=== PATIENT | female | born 2000 | race African-American/Black ===

== ENCOUNTER 2023-12-19 15:14 | Inpatient (IN) | payer MEDICAID ==
[~2023-12-19] VITALS: Ht 165.1 cm; Wt 89.9 kg
[2023-12-19 15:22] VITALS: O2SAT 100
[2023-12-19] MEDS ORDERED: KETOROLAC 30MG/ML VIAL IV STA (15:22)
[2023-12-19] MEDS: MORPHINE SULFATE 4 MG/ML INJ (FOR IV/IM USE) IV ONE (16:16)
[2023-12-19 16:36] LABS: BASOPHILS % 0.6 % (0.0-2.0); DIFFERENTIAL COMMENT 0; EOSINOPHILS % 3.9 % (0.0-5.0); HEMATOCRIT. 37.3 % (36.0-48.0); HEMOGLOBIN. 12.1 g/dL (12.0-16.0); LYMPHOCYTES % 27.2 % (20.0-50.0); MEAN CORPUSCULAR HEMOGLOBIN 24.7 pg (28.0-32.0); MEAN CORPUSCULAR HGB CONC 32.5 g/dL (31.0-37.0); MEAN CORPUSCULAR VOLUME 75.8 fL (81.0-99.0); MEAN PLATELET VOLUME 8.8 fl (7.4-10.4); MONOCYTES % 6.9 % (2.0-8.0); NEUTROPHILS % 61.4 % (40.0-76.0); PLATELET 481 x1000/uL (130-400); RED BLOOD CELL COUNT 4.92 mill/uL (4.2-5.4); RED CELL DISTRIBUTION WIDTH 15.9 % (11.6-14.6); WHITE BLOOD COUNT 7.7 x1000/uL (4.5-11.0)
[2023-12-19] MEDS: LORAZEPAM 2MG/ML INJ IM ONE ×2 (16:36→18:30)
[2023-12-19] MEDS: DIPHENHYDRAMINE 50MG/ML VIAL IM ONE (16:36)
[2023-12-19] MEDS: HALOPERIDOL LACTATE 5MG/ML VIAL IM ONE (16:36)
[2023-12-19 16:38] LABS: CHLORIDE 107 mEq/L (98-107); POTASSIUM 3.6 mEq/L (3.5-5.1); SODIUM 139 mEq/L (136-145)
[2023-12-19 16:39] LABS: CARBON DIOXIDE 26 mEq/L (21-32)
[2023-12-19 16:40] LABS: CALCIUM 9.4 mg/dL (8.7-10.4)
[2023-12-19 16:44] LABS: CREATININE 0.9 mg/dL (0.6-1.0); GLUCOSE 90 mg/dL (70-105); UREA NITROGEN BLOOD 7 mg/dL (9-23)
[2023-12-19] MEDS: SODIUM CHLORIDE 0.9% 1000ML BAG (SEPSIS BOLUS) IV ONE (16:45)
[2023-12-19 17:11] LABS: HCG SCREEN NEGATIVE
[2023-12-19] MEDS ORDERED: ONDANSETRON HCL 4MG/2ML INJ IV PRN (17:15)
[2023-12-19] MEDS ORDERED: ACETAMINOPHEN 325MG TABLET PO PRN ×2 (17:15)
[2023-12-19] MEDS ORDERED: IPRATROPIUM/ALBUTEROL 0.5-3(2.5)MG/3ML NEB HHN PRN (17:15)
[2023-12-19] MEDS ORDERED: DOCUSATE SODIUM 100MG CAPSULE PO PRN (17:15)
[2023-12-19] MEDS ORDERED: CLONIDINE 0.1MG TABLET PO PRN (17:15)
[2023-12-19] MEDS ORDERED: GUAIFENESIN 200MG/10ML SUGAR FREE UDC PO PRN (17:15)
[2023-12-19] MEDS ORDERED: MAGNESIUM/ALUMINUM HYDROXIDE/SIMETHICONE 30ML UDC PO PRN (17:15)
[2023-12-19] MEDS ORDERED: HYDROCODONE/ACETAMINOPHEN 5/325MG TABLET PO PRN (17:15)
[2023-12-19 17:20] LABS: ERYTHROCYTE SEDIMENTATION RATE 26 mm/hr (0-20)
[2023-12-19] MEDS ORDERED: DIPHENHYDRAMINE 50MG CAPSULE PO PRN (17:30)
[2023-12-19] MEDS ORDERED: LORAZEPAM 0.5MG TABLET PO PRN (17:30)
[2023-12-19] MEDS ORDERED: NALOXONE HCL 0.4MG/ML VIAL IV PRN (18:00)
[2023-12-19] MEDS: SODIUM CHLORIDE 0.9% 1,000 ML IV SCH (18:30)
[2023-12-19] MEDS: OLANZAPINE 10 MG/VIAL IM ONE (18:30)
[2023-12-19] MEDS: VANCOMYCIN 1.5GM/250ML IV NR (20:27)
[2023-12-19] MEDS: VANCOMYCIN 1G PREMIX 200 ML IV ONE (20:28)
[2023-12-19 20:51] LABS: PROTHROMBIN TIME 11.1 sec (9.6-11.0)
[2023-12-19 20:54] LABS: LACTIC ACID 2.7 mmol/L (0.4-2.0)
[2023-12-19] MEDS: ENOXAPARIN 40MG/0.4ML SYR SUBCUT SCH (20:54)
[2023-12-19] MEDS ORDERED: MELATONIN 3MG TABLET PO PRN (21:00)
[2023-12-19 23:44] VITALS: BP 144/89; PULSE 91; RESP 20; TEMP 36.9184
[2023-12-19] MEDS: PIPERACILLIN/TAZO 3.375G/50ML 50 ML IV SCH (23:45)
[2023-12-20] MEDS: VANCOMYCIN 750MG/150ML (BAXTER) IV SCH ×2 (06:21→13:18)
[2023-12-20] MEDS: ENOXAPARIN 30MG/0.3ML SYR SUBCUT SCH (17:15)
[2023-12-20 20:00] VITALS: BP 123/80; PULSE 78; RESP 17; TEMP 36.3918; O2SAT 97
[2023-12-21] VITALS: BP 117/71; PULSE 84; RESP 20; TEMP 36.6696; O2SAT 99
[2023-12-21 03:30] LABS: BASOPHILS % 0.5 % (0.0-2.0); DIFFERENTIAL COMMENT 0; HEMATOCRIT. 36.2 % (36.0-48.0); HEMOGLOBIN. 11.8 g/dL (12.0-16.0); LYMPHOCYTES % 44.9 % (20.0-50.0); MEAN CORPUSCULAR HEMOGLOBIN 24.8 pg (28.0-32.0); MEAN CORPUSCULAR HGB CONC 32.6 g/dL (31.0-37.0); MEAN CORPUSCULAR VOLUME 76.1 fL (81.0-99.0); MEAN PLATELET VOLUME 8.2 fl (7.4-10.4); NEUTROPHILS % 37.6 % (40.0-76.0); PLATELET 445 x1000/uL (130-400); RED BLOOD CELL COUNT 4.76 mill/uL (4.2-5.4); RED CELL DISTRIBUTION WIDTH 15.8 % (11.6-14.6); WHITE BLOOD COUNT 5.5 x1000/uL (4.5-11.0)
[2023-12-21 03:57] LABS: CHLORIDE 108 mEq/L (98-107); POTASSIUM 3.9 mEq/L (3.5-5.1); SODIUM 140 mEq/L (136-145)
[2023-12-21 03:58] LABS: CALCIUM 9.1 mg/dL (8.7-10.4); CARBON DIOXIDE 25 mEq/L (21-32)
[2023-12-21 04:03] LABS: CREATININE 0.9 mg/dL (0.6-1.0); UREA NITROGEN BLOOD 8 mg/dL (9-23)
[2023-12-21 04:09] LABS: GLUCOSE 129 mg/dL (70-105)
[2023-12-21 12:00] VITALS: BP 114/69; PULSE 74; RESP 18; TEMP 37.00296; O2SAT 100
[2023-12-21 16:00] VITALS: BP 107/59; RESP 18; TEMP 36.50292; O2SAT 97
[2023-12-21] MEDS: LEVOFLOXACIN 250MG TABLET PO SCH (18:11)
[2023-12-21] MEDS: SULFAMETHOXAZOLE/TRIMETHOPRIM 800/160MG TABLET PO SCH (22:02)
[2023-12-22 08:00] VITALS: BP 114/61; RESP 16; TEMP 36.16956
[2023-12-22 10:00] VITALS: BP 114/61; PULSE 78; RESP 17; TEMP 36.16956
== END 2023-12-22 13:47 | disposition left against medical advice (07) | DRG 383 ==
LOC: ER 15:14 → 6EST 18:08 → EDBEDREQ 18:13 → EDBEDREQTM 18:13
PROVIDERS: ADMIT Internal Medicine; ATTEND Internal Medicine
DX: L03.811 Cellulitis of head [any part, except face] (principal); F29 Unspecified psychosis not due to a substance or known physiological condition; F41.9 Anxiety disorder, unspecified; G47.00 Insomnia, unspecified; S01.00XA Unspecified open wound of scalp, initial encounter; T20.05XA Burn of unspecified degree of scalp [any part], initial encounter; Z53.29 Procedure and treatment not carried out because of patient's decision for other reasons; Y33.XXXA Other specified events, undetermined intent, initial encounter; Z59.00 Homelessness unspecified; Y93.89 Activity, other specified; Y92.89 Other specified places as the place of occurrence of the external cause; Y99.8 Other external cause status
CPT/HCPCS: 36415; 80048; 80202; 83605; 84145; 84703; 85025; 85651; 93005; 99291; J1200; J1630; J1650; J2060; J2270; J2543; J3370; J3490; J7030

== ENCOUNTER 2024-01-22 14:22 | Emergency (ER) | payer MEDICAID ==
[~2024-01-22] VITALS: Ht 167.6 cm; Wt 80.0 kg
[2024-01-22] MEDS: LORAZEPAM 2MG/ML INJ IM STA (15:06)
[2024-01-22] MEDS: HALOPERIDOL LACTATE 5MG/ML VIAL IM STA (15:06)
[2024-01-22] MEDS: DIPHENHYDRAMINE 50MG/ML VIAL IM STA (15:06)
[2024-01-22 15:32] LABS: BASOPHILS % 0.3 % (0.0-2.0); DIFFERENTIAL COMMENT 0; EOSINOPHILS % 0.7 % (0.0-5.0); HEMATOCRIT. 34.4 % (36.0-48.0); HEMOGLOBIN. 11.2 g/dL (12.0-16.0); LYMPHOCYTES % 22.5 % (20.0-50.0); MEAN CORPUSCULAR HEMOGLOBIN 24.7 pg (28.0-32.0); MEAN CORPUSCULAR HGB CONC 32.7 g/dL (31.0-37.0); MEAN CORPUSCULAR VOLUME 75.7 fL (81.0-99.0); MEAN PLATELET VOLUME 8.8 fl (7.4-10.4); MONOCYTES % 7.2 % (2.0-8.0); NEUTROPHILS % 69.3 % (40.0-76.0); PLATELET 410 x1000/uL (130-400); RED BLOOD CELL COUNT 4.55 mill/uL (4.2-5.4); RED CELL DISTRIBUTION WIDTH 16.7 % (11.6-14.6); WHITE BLOOD COUNT 8.5 x1000/uL (4.5-11.0)
[2024-01-22 15:37] LABS: CHLORIDE 104 mEq/L (98-107); POTASSIUM 3.5 mEq/L (3.5-5.1); SODIUM 135 mEq/L (136-145)
[2024-01-22 15:38] LABS: CARBON DIOXIDE 23 mEq/L (21-32)
[2024-01-22 15:39] LABS: CALCIUM 9.6 mg/dL (8.7-10.4)
[2024-01-22 15:43] LABS: CREATININE 0.8 mg/dL (0.6-1.0); GLUCOSE 110 mg/dL (70-105)
[2024-01-22 15:44] LABS: UREA NITROGEN BLOOD 16 mg/dL (9-23)
[2024-01-22 15:45] LABS: ACETAMINOPHEN < 2 ug/mL (10-30)
[2024-01-22 15:46] LABS: HCG SCREEN NEGATIVE
[2024-01-22 16:09] LABS: ETHANOL BLOOD < 10 mg/dL (<10)
[2024-01-22 19:00] VITALS: O2SAT 97
[2024-01-22] MEDS: LORAZEPAM 1MG TABLET PO STA (22:08)
[2024-01-23 09:57] LABS: CLARITY URINE CLEAR (CLEAR); COLOR URINE YELLOW (YELLOW); GLUCOSE URINE NEGATIVE (NEGATIVE); KETONES URINE NEGATIVE (NEGATIVE); LEUKOCYTE ESTERASE URINE 2+ (NEGATIVE); NITRITE URINE NEGATIVE (NEGATIVE); OCCULT BLOOD URINE NEGATIVE (NEGATIVE); PH URINE 6.5 (4.5-8.0); PROTEIN URINE NEGATIVE (NEGATIVE); UROBILINOGEN URINE 0.2 E.U./dL (0.2-1.0)
[2024-01-23 10:13] LABS: *AMPHETAMINES SCREEN URINE NEGATIVE (NEGATIVE); *BARBITURATES SCREEN URINE NEGATIVE (NEGATIVE); *BENZODIAZEPINES SCREEN URINE NEGATIVE (NEGATIVE); *COCAINE SCREEN URINE NEGATIVE (NEGATIVE)
[2024-01-23 10:14] LABS: CANNABINOID URINE SCREEN NEGATIVE (NEGATIVE); ECSTASY MDMA SCREEN URINE NEGATIVE (NEGATIVE); METHADONE URINE SCREEN NEGATIVE (NEGATIVE); OPIATES URINE SCREEN NEGATIVE (NEGATIVE); PHENCYCLIDINE URINE SCREEN NEGATIVE (NEGATIVE)
[2024-01-23 10:44] LABS: SQUAMOUS EPITHELIAL CELL URINE 1+ /lpf (RARE/1+)
[2024-01-23 10:45] LABS: BACTERIA URINE NONE SEEN; RBC URINE 0-2 /hpf (0-2); YEAST URINE NONE SEEN
[2024-01-23 16:24] VITALS: BP 109/54; PULSE 89; RESP 16; TEMP 36.66960; O2SAT 98
== END 2024-01-23 17:49 ==
LOC: ER 14:22
DX: F29 Unspecified psychosis not due to a substance or known physiological condition (principal); F20.9 Schizophrenia, unspecified; F31.9 Bipolar disorder, unspecified; Z20.822 Contact with and (suspected) exposure to COVID-19
CPT/HCPCS: 80048; 80307; 80329; 80320; 84703; 85025; 36415; 96372; 99285; 87426; 80305; 81003; J1200; J1630; J2060; Z7610 ×2; G0480